=== PATIENT | female | born 1980 | race Caucasian/White ===

== ENCOUNTER 2023-11-11 16:35 | Emergency (ER) | payer MEDICAID ==
[~2023-11-11] VITALS: Ht 152.4 cm; Wt 57.2 kg
[2023-11-11 16:39] VITALS: BP_SYST 113; PULSE 87; RESP 20; TEMP 98.3; O2SAT 98
[2023-11-11 17:49] LABS: BILIRUBIN,URINE NEGATIVE (NEGATIVE); BLOOD, URINE 3+ (NEGATIVE); COLOR,URINE YELLOW (YELLOW); GLUCOSE,URINE NEGATIVE (NEGATIVE); KETONES,URINE 3+ (NEGATIVE); LEUKOCYTE ESTERASE ,URINE NEGATIVE (NEGATIVE); NITRITE, URINE NEGATIVE (NEGATIVE); PROTEIN URINE NEGATIVE (NEGATIVE); UROBILINOGEN,URINE 0.2 (0.2-1.0)
[2023-11-11 17:51] LABS: CLARITY/URINE CLOUDY (CLEAR)
[2023-11-11 18:00] LABS: BASOPHILS % (AUTO) 0.3 % (0.0-2.0); EOSINOPHILS % (AUTO) 0.3 % (0.0-4.0); HEMATOCRIT 34.9 % (36-48); HEMOGLOBIN 12.1 g/dL (12.0-16.0); LYMPHOCYTES # (AUTO) 1.7 K/uL (1.0-5.5); LYMPHOCYTES % (AUTO) 18.3 % (20.5-51.5); MEAN CORPUSCULAR HEMOGLOBIN 31 pg (27-31); MEAN CORPUSCULAR HGB CONC 35 % (32-36); MEAN CORPUSCULAR VOLUME 89 fL (79.0-98.0); MONOCYTES # (AUTO) 0.4 K/uL (0.0-1.0); MONOCYTES % (AUTO) 4.3 % (1.7-9.3); NEUTROPHILS # (AUTO) 7.2 K/uL (1.8-7.7); NEUTROPHILS % (AUTO) 76.8 % (40.0-70.0); PLATELET COUNT (AUTO) 351 K/uL (130-430); RED BLOOD CELL COUNT(AUTO) 3.93 MIL/uL (4.2-6.2); RED CELL DISTRIBUTION WIDTH 12.9 % (9.0-15.0); WHITE BLOOD COUNT (AUTO) 9.4 K/uL (4.8-10.8)
[2023-11-11 18:32] LABS: BACTERIA,URINE FEW /HPF (None Seen); WBC,URINE 0-3 /HPF (0-3)
[2023-11-11] MEDS: ACETAMINOPHEN 500 MG TABLET PO ONE (19:46)
[2023-11-11 22:08] VITALS: BP_SYST 101; PULSE 82; RESP 18; TEMP 98.6; O2SAT 100
[2023-11-11] MEDS: LORazepam 1 MG TABLET PO ONE (22:43)
== END 2023-11-11 23:20 | disposition home or self-care (01) ==
LOC: SED 16:35
DX: O20.9 Hemorrhage in early pregnancy, unspecified (principal); Z3A.08 8 weeks gestation of pregnancy
CPT/HCPCS: 36415; 76801; 76817; 81000; 81001; 81015; 81025; 84702; 85025; 86901; 99284